=== PATIENT | male | born 1965 | race Hispanic/Latino ===

== ENCOUNTER 2024-08-22 05:40 | Inpatient (IN) | payer BC, OTHER ==
[~2024-08-22 05:40] MED LIST: LISINOPRIL-HCT1 EACH PO
[2024-08-22] MEDS ORDERED: LIDOCAINE HCL 2% LOCAL INJ 5 ML SDV VIAL INJ ONE (07:25)
[2024-08-22] MEDS ORDERED: ROCURONIUM BROMIDE 1 ML IV ONE ×3 (07:25→11:21)
[2024-08-22] MEDS ORDERED: FENTANYL CITRATE/PF 100MCG/2 ML INJ ONE ×2 (07:25→10:30)
[2024-08-22] MEDS ORDERED: MIDAZOLAM HCL 2 MG/2 ML VIAL ONE (07:25)
[2024-08-22] MEDS ORDERED: ACETAMINOPHEN 1000 MG/100 ML 100 ML IV ONE (07:26)
[2024-08-22] MEDS ORDERED: SEVOFLURANE INHAL SOLN 250 ML PEN BTL ONE (07:26)
[2024-08-22] MEDS ORDERED: PROPOFOL IV EMULSION 10 MG/ML 20 ML VIAL ONE (07:26)
[2024-08-22 07:36] LABS: BASOPHILS % 0.8 % (0.0-1.0); EOSINOPHILS % 1.9 % (0.0-6.0); LYMPHOCYTES % 34.8 % (18.0-39.1); MONOCYTES % 10.5 % (4.4-11.3); NEUTROPHILS % 51.6 % (38.7-80.0); RED CELL DISTRIBUTION WIDTH 13.2 % (11.7-14.4)
[2024-08-22 08:07] LABS: EST GLOMERULAR FILTRATION RATE 81.0 ML/MIN (>=60)
[2024-08-22] MEDS ORDERED: SUCCINYLCHOLINE CHLORIDE 20 MG/ML 10ML VIAL ONE (08:54)
[2024-08-22] MEDS: LACTATED RINGER'S 1,000 ML ONE (08:56)
[2024-08-22] MEDS ORDERED: DEXAMETHASONE SOD PHOS INJ 4 MG/ML SDV ONE (09:03)
[2024-08-22] MEDS ORDERED: ONDANSETRON HCL INJ 2MG/ML 2ML 2 MG/ML VIAL ONE (09:03)
[2024-08-22] MEDS ORDERED: KETOROLAC TROMETHAMINE 30 MG/ML VIAL ONE (09:04)
[2024-08-22] MEDS ORDERED: LACTATED RINGER'S 1,000 ML ONE ×2 (10:33→12:06)
[2024-08-22] MEDS ORDERED: SUGAMMADEX SODIUM 200 MG/2 ML VIAL IV ONE (11:15)
[2024-08-22] MEDS ORDERED: PHENYLEPHRINE HCL 1% 10 MG/ML VIAL ONE (11:25)
[2024-08-22] MEDS ORDERED: ONDANSETRON HCL INJ 2MG/ML 2ML 2 MG/ML VIAL IV PRN (12:30)
[2024-08-22] MEDS: LEVOFLOXACIN 500MG/D5W 100ML 100 ML IV ONE (15:02)
[2024-08-22] MEDS: SODIUM CHLORIDE 0.9% 1000ML 1,000 ML IV SCH (15:10)
[2024-08-22 15:16] VITALS: BP 112/73; PULSE 89; RESP 18; TEMP 97.8; O2SAT 94
[2024-08-22 15:18] VITALS: BP 112/73; PULSE 89; RESP 18; TEMP 97.8; O2SAT 94
[2024-08-22 15:53] VITALS: BP 103/73; PULSE 87; RESP 18; TEMP 97.2; O2SAT 95
[2024-08-22] MEDS: METRONIDAZOLE 500MG/NS 100ML 100 ML IV SCH (17:50)
[2024-08-22 19:35] VITALS: BP 146/80; PULSE 94; RESP 18; TEMP 98; O2SAT 97
[2024-08-22 21:00] VITALS: BP 146/80; PULSE 94; RESP 18; TEMP 98; O2SAT 97
[2024-08-22 23:16] VITALS: BP 108/73; PULSE 94; RESP 18; TEMP 98.2; O2SAT 99
[2024-08-23] VITALS (7 sets, daily range): BP systolic 108–127; BP diastolic 73–94; PULSE 91–99; RESP 18–20; TEMP 98–99.3; O2SAT 95–99
[2024-08-23 05:20] LABS: BASOPHILS % 0.2 % (0.0-1.0); EOSINOPHILS % 0.1 % (0.0-6.0); LYMPHOCYTES % 12.8 % (18.0-39.1); MONOCYTES % 9.5 % (4.4-11.3); NEUTROPHILS % 77.1 % (38.7-80.0); RED CELL DISTRIBUTION WIDTH 13.3 % (11.7-14.4)
[2024-08-23 05:44] LABS: EST GLOMERULAR FILTRATION RATE 99.0 ML/MIN (>=60)
[2024-08-23] MEDS: LISINOPRIL 20 MG TAB PO SCH (09:00)
[2024-08-23] MEDS: HYDROCHLOROTHIAZIDE 25 MG TAB PO SCH (09:00)
[2024-08-23] MEDS: LEVOFLOXACIN 500MG/D5W 100ML 100 ML IV SCH (09:39)
[2024-08-24] VITALS (7 sets, daily range): BP systolic 106–120; BP diastolic 73–91; PULSE 89–109; RESP 18–20; TEMP 97.7–99; O2SAT 96–100
[2024-08-24 05:23] LABS: BASOPHILS % 0.4 % (0.0-1.0); EOSINOPHILS % 0.2 % (0.0-6.0); LYMPHOCYTES % 15.0 % (18.0-39.1); MONOCYTES % 11.3 % (4.4-11.3); NEUTROPHILS % 72.5 % (38.7-80.0); RED CELL DISTRIBUTION WIDTH 13.3 % (11.7-14.4)
[2024-08-24] MEDS: KETOROLAC TROMETHAMINE 30 MG/ML VIAL IV PRN (05:47)
[2024-08-24 06:13] LABS: EST GLOMERULAR FILTRATION RATE 101.0 ML/MIN (>=60)
[2024-08-24] MEDS: BISACODYL 10 MG SUPP PR ONE (09:29)
[2024-08-24] MEDS ORDERED: HYDROCODONE/APAP 7.5MG-325MG 1 EA TAB PO PRN (18:30)
[2024-08-24] MEDS: HYDROMORPHONE 1MG/1ML INJ IV PRN (20:52)
[2024-08-25 06:49] LABS: BASOPHILS % 0.3 % (0.0-1.0); EOSINOPHILS % 0.9 % (0.0-6.0); LYMPHOCYTES % 18.9 % (18.0-39.1); MONOCYTES % 10.3 % (4.4-11.3); NEUTROPHILS % 69.0 % (38.7-80.0); RED CELL DISTRIBUTION WIDTH 13.2 % (11.7-14.4)
[2024-08-25 07:29] LABS: EST GLOMERULAR FILTRATION RATE 102.0 ML/MIN (>=60)
[2024-08-25 08:00] VITALS: BP 128/92; PULSE 90; RESP 22; TEMP 98.2; O2SAT 98
[2024-08-25 09:37] VITALS: BP 128/92; PULSE 90; RESP 22; TEMP 98.2; O2SAT 98
[2024-08-25 12:00] VITALS: BP 114/79; PULSE 106; RESP 22; TEMP 98.4; O2SAT 100
[2024-08-25 16:00] VITALS: BP 131/82; PULSE 99; RESP 22; TEMP 98.1; O2SAT 99
[2024-08-25 20:00] VITALS: BP 131/82; PULSE 99; RESP 22; TEMP 98.1; O2SAT 99
[2024-08-25 20:08] VITALS: BP 122/82; PULSE 99; RESP 19; TEMP 99.3; O2SAT 97
[2024-08-26 00:25] VITALS: BP 113/80; PULSE 92; RESP 16; TEMP 99; O2SAT 98
[2024-08-26 04:40] VITALS: BP 110/78; PULSE 89; RESP 21; TEMP 98.7; O2SAT 98
[2024-08-26 08:00] VITALS: BP 118/73; PULSE 87; RESP 20; TEMP 97.8; O2SAT 99
== END 2024-08-26 12:05 | disposition home or self-care (01) | DRG 331 ==
LOC: OR 05:40 → PACU V 12:29 → MED/SURG 13:54
PROVIDERS: ADMIT Surgery; ATTEND Surgery
PROC: 0VTB0ZZ Resection of Left Testis, Open Approach (ICD-10-PCS; 2024-08-22)
PROC: 0DTN0ZZ Resection of Sigmoid Colon, Open Approach (ICD-10-PCS; principal; 2024-08-22 08:53)
PROC: 0YQ60ZZ Repair Left Inguinal Region, Open Approach (ICD-10-PCS; 2024-08-22 08:53)
DX: K40.30 Unilateral inguinal hernia, with obstruction, without gangrene, not specified as recurrent (principal); I10 Essential (primary) hypertension
CPT/HCPCS: 36415; 80048; 85025; 88304; 88305; 88307; C1781; J0330; J0690; J1100; J1171; J1885; J1956; J2003; J2250; J2371; J2405; J2470; J7030